=== PATIENT | male | born 1970 | race Caucasian/White ===

== ENCOUNTER 2021-12-24 10:11 | Day surgery (SDC) | payer OTHER ==
[~2021-12-24] VITALS: Ht 185.4 cm; Wt 104.3 kg
[~2021-12-24 10:11] MED LIST: CEFAZOLIN SOD 2 GM in D5W 50 ML IV ONE
[2021-12-24] MEDS ORDERED: BUPIVACAINE LIPOSOME/PF 266 MG/20 ML VIAL INFIL ONE (10:52)
[2021-12-24] MEDS ORDERED: BUPIVACAINE /PF 0.25% 10 ML VIAL INJ ONE (11:10)
[2021-12-24] MEDS ORDERED: DEXAMETHASONE SOD PHOSPHATE 4 MG/ML VIAL IVP ONE (11:10)
[2021-12-24] MEDS ORDERED: PROPOFOL 200MG/ 20ML VIAL (DIPRIVAN) IV ONE (11:10)
[2021-12-24] MEDS ORDERED: SEVOFLURANE 15 MIN GAS INH ONE (11:10)
[2021-12-24] MEDS ORDERED: ROCURONIUM BROMIDE 10 MG/ML (ZEMURON) IV ONE (11:10)
[2021-12-24] MEDS ORDERED: fentaNYL CITRATE 250 MCG/5 ML AMP IV ONE (11:10)
[2021-12-24] MEDS ORDERED: NS IRRIG SOLN 1000 ML IR ONE (11:10)
[2021-12-24] MEDS ORDERED: HYDROmorphone 2 MG/ML VIAL IVP ONE (11:10)
[2021-12-24] MEDS ORDERED: MIDAZOLAM HCL 5 MG/5 ML VIAL IVP ONE (11:10)
[2021-12-24] MEDS ORDERED: CEFAZOLIN 1 GM IVPB PREMIX 50 ML IV ONE (11:10)
[2021-12-24] MEDS ORDERED: LR 1,000 ML IV.SOLN IV ONE (11:10)
[2021-12-24] MEDS ORDERED: ONDANSETRON HCL 4 MG/2 ML VIAL IVP PRN (13:00)
[2021-12-24] MEDS ORDERED: fentaNYL CITRATE/PF 100 MCG/2 ML AMP IVP ONE (13:00)
[2021-12-24] MEDS ORDERED: traMADol HCL HCL 50 MG TABLET (ULTRAM) PO PRN (13:15)
[2021-12-24] MEDS ORDERED: fentaNYL CITRATE/PF 100 MCG/2 ML AMP ONE (13:43)
[2021-12-24] MEDS ORDERED: ACETAMINOPHEN 500 MG TABLET PO ONE (14:30)
[2021-12-24] MEDS ORDERED: ACETAMINOPHEN 500 MG TABLET ONE (14:30)
[2021-12-24] MEDS ORDERED: BENZOCAINE/MENTHOL 1 EACH LOZENGE MM ONE (15:00)
[2021-12-25 08:13] VITALS: BP_SYST 127
== END 2021-12-24 17:20 | disposition home or self-care (01) ==
LOC: SDS 10:11 → SMU 10:12 → EDSTATUS 11:15 → SDS 17:20
PROVIDERS: ATTEND Surgery
DX: K42.9 Umbilical hernia without obstruction or gangrene (principal); N18.9 Chronic kidney disease, unspecified; J45.909 Unspecified asthma, uncomplicated; K21.9 Gastro-esophageal reflux disease without esophagitis; E78.00 Pure hypercholesterolemia, unspecified; G62.9 Polyneuropathy, unspecified; Z20.822 Contact with and (suspected) exposure to COVID-19; Z79.899 Other long term (current) drug therapy
CPT/HCPCS: 36415; 87426; 49585; 88302; C9290; J3490; J0690 ×2; J1100; J2250; J2704; J3010 ×2; J1170; J7060; J7120; C1781